=== PATIENT | male | born 1930 ===

== ENCOUNTER 2018-02-12 20:46 | Emergency (ER) | payer OTHER ==
[~2018-02-12] VITALS: Ht 172.7 cm; Wt 70.3 kg
--- NOTE | 2018-02-12 21:05 | Emergency Room Report ---
History of Present Illness General Chief Complaint: Head Injury Source: Patient, EMS Present Illness HPI 87yo m with a history of COPD on home O2 presents with neck and a Cipro area pain status post fall when he tripped over his O2 tubing. He denies loss consciousness, denies vomiting, denies focal weakness, denies pain anywhere else. Allergies: Coded Allergies: No Known Allergies (Unverified , 02/12/18) Patient History Limited by: language barrier Past Medical History: see triage record Reviewed Nursing Documentation: PMH: Agreed; PSxH: Agreed Nursing Documentation-PMH Past Medical History: No History, Except For Hx COPD: Yes - 3L NC at home Hx Cerebrovascular Accident: Yes - No deficits Review of Systems All Other Systems: negative except mentioned in HPI Physical Exam Vital Signs Date Time Temp Pulse Resp B/P (MAP) Pulse Ox O2 Delivery O2 Flow Rate FiO2 02/12/18 20:37 97.6 88 16 168/86 92 Room Air 97.5 Sp02 EP Interpretation: reviewed, normal General Appearance: no apparent distress, alert, non-toxic Head: normocephalic, other - 4cm total length of 3-pronged stellate laceration and hematoma over occiput Eyes: bilateral eye normal inspection, bilateral eye PERRL, bilateral eye EOMI ENT: normal ENT inspection, hearing grossly normal, normal pharynx, no angioedema, normal voice, moist mucus membranes Neck: normal inspection, full range of motion, supple, no bony tend, supple/ symm/no masses Respiratory: chest non-tender, lungs clear, normal breath sounds, chest symmetrical, palpation of chest normal Cardiovascular #1: normal peripheral pulses, regular rate, rhythm Cardiovascular #2: 2+ radial (R), 2+ radial (L) Gastrointestinal: normal inspection, non tender, soft, no mass, no guarding, no rebound Rectal: deferred Genitourinary: normal inspection, no CVA tenderness Musculoskeletal: back normal, gait/station normal, normal range of motion, non- tender, no calf tenderness Neurologic: alert, responsive, [employer] III-XII nml as tested, motor strength/tone normal, sensory intact, speech normal Psychiatric: judgement/insight normal, memory normal, mood/affect normal, no suicidal/homicidal ideation Skin: normal color, no rash, warm/dry, normal turgor Lymphatic: no adenopathy Procedures Laceration/Wound Repair Laceration/Wound Repair : Consent: Verbal Wound Location: head Wound's Depth, Shape: superficial, stellate Wound Length (cm): 4 Wound Explored: clean Betadine Prep?: Yes Anesthesia: Lidocaine w/ Epi Volume Anesthetic (ccs): 7 Wound Repaired With: noemy Number of Sutures: 6 Layer Closure?: No Sterile Dressing Applied?: Yes Splint Applied?: No Patient Tolerated: Well Complications: Other - EBL 2cc Medical Decision Making Diagnostic Impression: Primary Impression: Acute head injury Additional Impression: Laceration ER Course Patient had small laceration, repaired with noemy, head and C-spine CT normal , patient discharged CT/MRI/US Diagnostic Results CT/MRI/US Diagnostic Results #1: Imaging Test Ordered: ct head Impression nad CT/MRI/US Diagnostic Results #2: Imaging Test Ordered: ct c-spine Impression nad Last Vital Signs Date Time Temp Pulse Resp B/P (MAP) Pulse Ox O2 Delivery O2 Flow Rate FiO2 02/12/18 20:37 97.6 88 16 168/86 92 Room Air 97.5 Disposition: HOME, SELF-CARE Condition: Stable JENNI STANFORD M.D Feb 12, 2018 21:05
[2018-02-12] MEDS ORDERED: RANEXA500 MG ORAL (21:14)
[2018-02-12] MEDS ORDERED: TUMS200 M1 PO (21:14)
[2018-02-12] MEDS ORDERED: SYMBICORT2 PUFF1 INH (21:14)
[2018-02-12] MEDS ORDERED: VITAMIN D1000 UNI1 ORAL (21:14)
[2018-02-12] MEDS ORDERED: ASPIRIN81 MG ORAL (21:14)
[2018-02-12] MEDS ORDERED: SINGULAIR10 MG ORAL (21:14)
[2018-02-12] MEDS ORDERED: PROAIR HFA8.5 GM INH (21:14)
[2018-02-12] MEDS ORDERED: VENTOLIN HFA18 GM NEBULIZ062 (21:14)
[2018-02-12] MEDS ORDERED: MIRALAX17 G2 ORAL (21:14)
[2018-02-12] MEDS ORDERED: Lidocaine 1% 10mg/ml/Epi 0.005mg/ml 30ml vial INJ ONE ×2 (21:37→21:45)
--- NOTE | 2018-02-12 21:44 | Diagnostic Imaging Report ---
EXAM: CT Cervical Spine Without Intravenous Contrast CLINICAL HISTORY: FALL TECHNIQUE: Axial computed tomography images of the cervical spine without intravenous contrast. CTDI is 15 mGy and DLP is 486 mGy-cm. One or more of the following dose reduction techniques were used: automated exposure control, adjustment of the mA and/or kV according to patient size, use of iterative reconstruction technique. COMPARISON: No relevant prior studies available. FINDINGS: Vertebrae: No acute fracture. Discs/spinal canal/neural foramina: No acute findings. Soft tissues: Unremarkable. Lung apices: Unremarkable as visualized. IMPRESSION: No acute findings.
--- NOTE | 2018-02-12 21:46 | Diagnostic Imaging Report ---
EXAM: CT Head Without Intravenous Contrast CLINICAL HISTORY: FALL TECHNIQUE: Axial computed tomography images of the head/brain without intravenous contrast. CTDI is 12 MGy and DLP is 486 mGy-cm. One or more of the following dose reduction techniques were used: automated exposure control, adjustment of the mA and/or kV according to patient size, use of iterative reconstruction technique. COMPARISON: No relevant prior studies available. FINDINGS: Brain: Unremarkable. No hemorrhage. No edema. Ventricles: Unremarkable. No ventriculomegaly. Bones/joints: Unremarkable. No acute fracture. Soft tissues: Posterior soft tissue swelling. Sinuses: Unremarkable as visualized. No acute sinusitis. Mastoid air cells: Unremarkable as visualized. No mastoid effusion. IMPRESSION: Posterior soft tissue swelling.
[2018-02-12] MEDS ORDERED: Norco 5mg/325mg tab ORAL SCH (22:00)
[2018-02-12] MEDS ORDERED: Meclizine 25mg tab ORAL SCH (22:00)
[2018-02-12 22:35] VITALS: BP 162/82
== END 2018-02-12 22:35 | disposition home or self-care (01) ==
LOC: EDBD 20:46 → CANBEDREQ 21:34 → EMR 21:53
DX: S01.01XA Laceration without foreign body of scalp, initial encounter (principal); S09.8XXA Other specified injuries of head, initial encounter; W01.0XXA Fall on same level from slipping, tripping and stumbling without subsequent striking against object, initial encounter; Y92.009 Unspecified place in unspecified non-institutional (private) residence as the place of occurrence of the external cause; J44.9 Chronic obstructive pulmonary disease, unspecified; Z86.73 Personal history of transient ischemic attack (TIA), and cerebral infarction without residual deficits
CPT/HCPCS: 70450; 72125; 99284